=== PATIENT | male | born 1940 | race Caucasian/White ===

== ENCOUNTER 2016-06-20 14:05 | Emergency (ER) | payer OTHER, MEDICARE ==
[2016-06-20 14:13] VITALS: TEMP 97.9
--- NOTE | 2016-06-20 14:21 | EDPHY ---
H & P Stated Complaint: sob cough fatigue worsening respiratory illness x weeks Time Seen by Provider: 06/20/16 14:21 HPI/ROS: CHIEF COMPLAINT: Chronic cough, worsening symptoms HISTORY OF PRESENT ILLNESS: The patient presents to the ED for evaluation of a worsening cough for the past 2-3 weeks. The patient saw his primary care provider who started him on amoxicillin. The patient is taking the antibiotics without improvement of his symptoms. The patient does use oxygen at night for obstructive sleep apnea. The patient has a history of chronic atrial fibrillation but is not anticoagulated secondary to a history of serious GI bleed in the past. The patient denies asymmetric calf pain or swelling. The patient does report that his symptoms are bothersome throughout the day. The patient denies additional acute complaints. REVIEW OF SYSTEMS: A comprehensive 10 point review of systems is otherwise negative aside from elements mentioned in the history of present illness. Source: Patient Exam Limitations: No limitations - Personal History Tetanus Vaccine Date: < 10 YRS - Medical/Surgical History Hx Chronic Respiratory Disease: Yes Other PMH: COPD - Family History Significant Family History: No pertinent family hx - Social History Smoking Status: Former smoker Alcohol Use: None Drug Use: None - Physical Exam Exam: General Appearance: Alert, no distress Eyes: Pupils equal and round no pallor or injection ENT, Mouth: Mucous membranes moist Respiratory: Tachypnea, distant breath sounds, rhonchi bilateral bases Cardiovascular: Tachycardic, irregular Gastrointestinal: Abdomen is soft and nontender, no masses, bowel sounds normal Neurological: A&O, normal motor function, normal sensory exam, normal cranial nerves Skin: Warm and dry, no rashes Musculoskeletal: Neck is supple nontender Extremities: symmetrical, full range of motion Constitutional: Initial Vital Signs Temperature (C) 36.6 C 06/20/16 14:10 Heart Rate 118 H 06/20/16 14:10 Respiratory Rate 20 06/20/16 14:10 Blood Pressure 100/62 06/20/16 14:10 O2 Sat (%) 93 06/20/16 14:10 O2 Delivery Mode Nasal Cannula O2 (L/minute) 3 Allergies/Adverse Reactions: DUST/ ENVIRONMENTAL Allergy (Intermediate, Uncoded 05/26/12 15:33) DIFFICULY BREATHING/ NASAL CONGESTON Home Medications: Medication Instructions Recorded Lisinopril [Zestril 2.5 mg (RX)] 2.5 mg PO DAILY 09/13/11 Simvastatin [Zocor 20 mg (RX)] 20 mg PO HS 09/13/11 Spironolactone [Aldactone 25 MG 25 mg PO DAILY 09/13/11 (RX)] Tiotropium Inhaler [Spiriva 1 inh IH DAILY 09/13/11 Inhaler (RX)] Cyanocobalamin [Vitamin B12 100 100 mcg PO DAILY 09/28/11 MCG (OTC)] Digoxin [Lanoxin 0.25 mg (RX)] 0.25 mg PO DAILY 09/28/11 Multivitamins [Multivitamin (OTC)] 1 each PO DAILY 09/28/11 Albuterol Hfa Anes Only [Proair 2 puffs IH QID PRN 10/02/11 Hfa Icu (RX)] Aspirin [Aspirin 81mg (OTC)] 81 mg PO DAILY 10/02/11 Beclomethasone Qvar 40 [Qvar 40 1 puffs IH BID 10/02/11 (RX)] Carvedilol [Coreg (RX)] 3.125 mg PO BIDMEAL 10/02/11 Ertapenem [INVanz] 1 gm IV DAILY 10/02/11 Fexofenadine HCl [Marlin] 60 mg PO DAILY 10/02/11 Furosemide [Lasix 20 MG (RX)] 20 mg PO DAILY 10/02/11 Herb/Supplements 1 tab PO DAILY 10/02/11 Levalbuterol 1.25 mg [Xopenex 1.25 mg IH DAILY 10/02/11 1.25MG Neb (RX)] Levothyroxine [Synthroid 50 mcg 50 mcg PO DAILY06 10/02/11 (RX)] Amiodarone HCl [Pacerone (*)] 200 mg PO DAILY 10/04/11 [place]-3 Fatty Acids [Fish Oil 1000 1,000 mg PO DAILY 10/04/11 mg (OTC)] Prednisone [Sterapred Ds] 10 mg PO 05/26/12 predniSONE [Prednisone] 10 mg PO DAILY #15 tablet 05/26/12 oxyCODONE/APAP 5/325 [Percocet 1 tab PO Q4-6PRN PRN #14 tab 08/29/14 5/325 (*)] Benzonatate [Tessalon Pearles (RX)] 100 mg PO TID PRN #30 cap 06/20/16 predniSONE [prednisone 20mg (RX)] 3 tab PO DAILY #15 tab 06/20/16 Medical Decision Making - Diagnostics EKG Interpretation: EKG: Complete interpretation has been separately recorded in the [facility] archive. Summary impression: Atrial fibrillation, rate 120, nonspecific T- wave changes noted in the inferior leads. Imaging: Chest x-ray PA lateral: Images reviewed by myself, changes consistent with COPD noted, no obvious consolidation, no heart failure ED Course/Re-evaluation: The patient presents to the emergency department with worsening cough for the past several weeks. The patient has been on a course of antibiotics without improvement. He has been using Xopenex at home. The patient does have home oxygen. The patient is noted have a harsh rhonchorous cough in the ED. His chest x-ray demonstrates no obvious infiltrate by my interpretation there is evidence of underlying COPD. The patient did receive an albuterol nebulizer in the ED. He is noted to be in chronic atrial fibrillation which is rate controlled. Patient did receive IV fluids in the ED and is currently feeling much better. At this point time the patient will be given a short course of prednisone which he has used in the past for cough and dyspnea. The patient was given 60 mg of prednisone in the ED. The patient is also given a refill of Tessalon Perles. Differential Diagnosis: Differential diagnosis considered includes asthma, bronchitis, pneumonia, congestive heart failure, uncontrolled atrial fibrillation - Data Points Laboratory Results: Laboratory Results 06/20/16 14:37 06/20/16 14:37 06/20/16 06/20/16 14:37 14:37 WBC 12.34 10^3/uL H 10^3/uL (3.80-9.50) RBC 5.66 10^6/uL 10^6/uL (4.40-6.38) Hgb 17.2 g/dL g/dL (13.7-17.5) Hct 50.1 % % (40.0-51.0) MCV 88.5 fL fL (81.5-99.8) MCH 30.4 pg pg (27.9-34.1) MCHC 34.3 g/dL g/dL (32.4-36.7) RDW 13.8 % % (11.5-15.2) Plt Count 203 10^3/uL 10^3/uL (150-400) MPV 8.8 fL fL (8.7-11.7) Neut % (Auto) 75.6 % H % (39.3-74.2) Lymph % (Auto) 13.0 % L % (15.0-45.0) Mcdowell % (Auto) 7.7 % % (4.5-13.0) Eos % (Auto) 2.4 % % (0.6-7.6) Baso % (Auto) 0.8 % % (0.3-1.7) Nucleat RBC Rel Count 0.0 % % (0.0-0.2) Absolute Neuts (auto) 9.33 10^3/uL H 10^3/uL (1.70-6.50) Absolute Lymphs (auto) 1.60 10^3/uL 10^3/uL (1.00-3.00) Absolute Monos (auto) 0.95 10^3/uL H 10^3/uL (0.30-0.80) Absolute Eos (auto) 0.30 10^3/uL 10^3/uL (0.03-0.40) Absolute Basos (auto) 0.10 10^3/uL 10^3/uL (0.02-0.10) Absolute Nucleated RBC 0.00 10^3/uL 10^3/uL (0-0.01) Immature Gran % 0.5 % % (0.0-1.1) Immature Gran # 0.06 10^3/uL 10^3/uL (0.00-0.10) Sodium 137 mEq/L mEq/L (134-144) Potassium 4.7 mEq/L mEq/L (3.5-5.2) Chloride 99 mEq/L mEq/L (97-110) Carbon Dioxide 25 mEq/l mEq/l (22-31) Anion Gap 13 mEq/L mEq/L (8-16) BUN 31 mg/dL H mg/dL (7-23) Creatinine 0.7 mg/dL mg/dL (0.7-1.3) Estimated GFR > 60 Glucose 112 mg/dL H mg/dL (70-100) Calcium 9.7 mg/dL mg/dL (8.5-10.4) Troponin I < 0.012 ng/mL ng/mL (0-0.034) NT-Pro-B Natriuret Pep 1020 pg/mL H pg/mL (0-450) Medications Given: Discontinued Medications Albuterol (Proventil Neb) 3 ml IH EDNOW ONE Stop: 06/20/16 14:33 Last Admin: 06/20/16 14:47 Dose: 3 ml Sodium Chloride (Ns) 1,000 mls @ 0 mls/hr IV ONCE ONE PRN Reason: Wide Open Stop: 06/20/16 15:33 Last Admin: 06/20/16 15:35 Dose: 1,000 mls Departure - Departure Disposition: Home, Routine, Self-Care Clinical Impression: Chronic obstructive pulmonary disease with acute exacerbation Condition: Good Instructions: COPD (Chronic Obstructive Pulmonary Disease) (ED) Additional Instructions: 1. Please take prednisone as directed for next 5 days. 2. Please return to the emergency department for worsening respiratory symptoms , chest pain or other concerns. 3. Please follow up with Dr. John Butler in the next week for a recheck. Referrals: Richard Butler MD [Primary Care Provider] - As per Instructions Prescriptions: Benzonatate [Tessalon Pearles (RX)] 100 mg PO TID PRN #30 cap PRN Reason: for cough predniSONE [prednisone 20mg (RX)] 3 tab PO DAILY #15 tab
[2016-06-20] MEDS ORDERED: ALBUTEROL 3 ML DEYVIAL IH ONE (14:32)
[2016-06-20 14:52] LABS: % IMMATURE GRANULYOCYTES 0.5 % (0.0-1.1); ABSOLUTE IMMATURE GRANULOCYTES 0.06 10^3/uL (0.00-0.10); ADD DIFF? NO; ADD MORPH? NO; ADD SCAN? NO; ATYPICAL LYMPHOCYTE FLAG 0 (0-99); FRAGMENT RBC FLAG 0 (0-99); HEMATOCRIT 50.1 % (40.0-51.0); HEMOGLOBIN 17.2 g/dL (13.7-17.5); LEFT SHIFT FLG 0 (0-99); LIPEMIA HEMOLYSIS FLAG 90 (0-99); MEAN CELL HEMOGLOBIN 30.4 pg (27.9-34.1); MEAN CELL HEMOGLOBIN CONCENTR. 34.3 g/dL (32.4-36.7); MEAN CELL VOLUME 88.5 fL (81.5-99.8); MEAN PLATELET VOLUME 8.8 fL (8.7-11.7); PLATELET CLUMPS FLAG 0 (0-99); PLATELET COUNT 203 10^3/uL (150-400); RED BLOOD CELL COUNT 5.66 10^6/uL (4.40-6.38); RED CELL DISTRIBUTION WIDTH 13.8 % (11.5-15.2)
--- NOTE | 2016-06-20 15:19 | CPEKG ---
Heart Rate: 120 RR Interval: 500 QRSD Interval: 88 QT Interval: 324 QTC Interval: 458 QRS [place]: 88 T Wave [place]: -79 EKG Severity - ABNORMAL ECG - EKG Impression: ATRIAL FIBRILLATION, V-RATE 79-155 EKG Impression: BORDERLINE RIGHT AXIS DEVIATION EKG Impression: NONSPECIFIC REPOL ABNORMALITY, DIFFUSE LEADS Electronically Signed By: David Villanueva 20-Jun-2016 15:23:21
[2016-06-20 15:26] LABS: ANION GAP 13 mEq/L (8-16); CALCIUM 9.7 mg/dL (8.5-10.4); CARBON DIOXIDE 25 mEq/l (22-31); CHLORIDE 99 mEq/L (97-110); CREATININE 0.7 mg/dL (0.7-1.3); GLOMERULAR FILTRATION RATE > 60; GLUCOSE 112 mg/dL (70-100); POTASSIUM 4.7 mEq/L (3.5-5.2); SODIUM 137 mEq/L (134-144)
[2016-06-20] MEDS ORDERED: NS 1,000 ML IV ONE (15:32)
[2016-06-20 15:37] LABS: TROPONIN I < 0.012 ng/mL (0-0.034)
[2016-06-20] MEDS ORDERED: predniSONE 20 MG TAB PO ONE (15:56)
[2016-06-20 17:27] VITALS: BP 98/60; PULSE 103; RESP 18; O2SAT 96
== END 2016-06-20 17:26 | disposition home or self-care (01) ==
DX: J44.1 Chronic obstructive pulmonary disease with (acute) exacerbation (principal); Z87.891 Personal history of nicotine dependence; Z79.82 Long term (current) use of aspirin

== ENCOUNTER → 2016-08-30 | Outpatient (CLI) | payer OTHER, MEDICARE | LOC: BHFA 13:45 | PROVIDERS: ATTEND Internal Medicine Cardiovascular Disease | DX: I50.9 Heart failure, unspecified (principal); I25.10 Atherosclerotic heart disease of native coronary artery without angina pectoris; I48.91 Unspecified atrial fibrillation; J44.9 Chronic obstructive pulmonary disease, unspecified ==

== ENCOUNTER → 2017-04-22 | Outpatient (CLI) | payer OTHER, MEDICARE | LOC: BHCLAF 14:00 | PROVIDERS: ATTEND Internal Medicine Cardiovascular Disease | DX: I48.91 Unspecified atrial fibrillation (principal); I42.9 Cardiomyopathy, unspecified | CPT/HCPCS: 93306-PO ==

== ENCOUNTER 2018-01-31 13:33 | Emergency (ER) | payer OTHER, MEDICARE ==
[2018-01-31] MEDS ORDERED: CEPHALEXIN 500 MG CAP PO ONE (14:19)
--- NOTE | 2018-01-31 14:23 | EDPHY ---
H & P Stated Complaint: mechanical fall 1 week ago--R leg injury Time Seen by Provider: 01/31/18 14:09 HPI/ROS: CHIEF COMPLAINT: Right leg injury HISTORY OF PRESENT ILLNESS: Patient is an 78-year-old man who states that 7 days ago he took the lid off of the crawl space and then accidentally stepped into it with his right leg. He caught himself before landing in a sitting position on the edge but did scrape his donahue on the edge of the crawl space. He also bumped his calf against the wall and had bruising of the calf. The bruising has gradually dissipated and has a gravid taped and to his foot. He denies any pain in the foot or ankle. No knee pain. He has been ambulating without difficulty. However the wound on his donahue is not healing well and is become slightly erythematous. No purulent. No drainage. No fluctuance. No fever. He does have a history of atrial fibrillation but does not take blood thinners other than aspirin. Severity: Moderate Modifying factors: None REVIEW OF SYSTEMS: Constitutional: denies: chills, fever, recent illness, recent injury EENTM: denies: blurred vision, double vision, nose congestion Respiratory: denies: cough, shortness of breath Cardiac: denies: chest pain, irregular heart rate, lightheadedness, palpitations Gastrointestinal/Abdominal: denies: abdominal pain, diarrhea, nausea, vomiting, blood streaked stools Genitourinary: denies: dysuria, frequency, hematuria, pain Musculoskeletal: denies: joint pain, muscle pain Skin: See HPI Neurological: denies: headache, numbness, paresthesia, tingling, dizziness, weakness Hematologic/Lymphatic: denies: blood clots, easy bleeding, easy bruising Immunologic/allergic: denies: HIV/AIDS, transplant 10 systems reviewed and negative except as noted EXAM: GENERAL: Well-appearing, well-nourished and in no acute distress. HEAD: Atraumatic, normocephalic. EYES: Pupils equal round and reactive to light, extraocular movements intact, sclera anicteric, conjunctiva are normal. ENT: TMs normal, nares patent, oropharynx clear without exudates. Moist mucous membranes. NECK: Normal range of motion, supple without lymphadenopathy or JVD. LUNGS: Breath sounds clear to auscultation bilaterally and equal. No wheezes rales or rhonchi. HEART: Regular rate and rhythm without murmurs, rubs or gallops. ABDOMEN: Soft, nontender, normoactive bowel sounds. No guarding, no rebound. No masses appreciated. BACK: No CVA tenderness, no spinal tenderness, step-offs or deformities EXTREMITIES: Normal range of motion, no pitting or edema. No clubbing or cyanosis. The mild bruising to right foot. Patient is not concerned about this. No pain or swelling. NEUROLOGICAL: Cranial nerves II through XII grossly intact. Normal speech, normal gait. 5/5 strength, normal movement in all extremities, normal sensation , normal reflexes PSYCH: Normal mood, normal affect. SKIN: 5 cm abrasion to right anterior donahue, less than a cm deep. Mild erythema at wound margins. Slightly warm. No purulence. No fluctuance. Source: Patient Exam Limitations: No limitations - Personal History Tetanus Vaccine Date: < 10 YRS - Medical/Surgical History Hx Asthma: No Hx Chronic Respiratory Disease: Yes Hx Diabetes: No Hx Cardiac Disease: Yes Hx Renal Disease: No Hx Cirrhosis: No Hx Alcoholism: No Hx HIV/AIDS: No Hx Splenectomy or Spleen Trauma: No Other PMH: COPD, A fib, htn - Family History Significant Family History: No pertinent family hx - Social History Smoking Status: Former smoker Alcohol Use: Sober Drug Use: None Constitutional: Initial Vital Signs Temperature (C) 36.7 C 01/31/18 13:41 Heart Rate 104 H 01/31/18 13:41 Respiratory Rate 18 01/31/18 13:41 Blood Pressure 131/86 H 01/31/18 13:41 O2 Sat (%) 92 01/31/18 13:41 O2 Delivery Mode Room Air Allergies/Adverse Reactions: DUST/ ENVIRONMENTAL Allergy (Intermediate, Uncoded 05/26/12 15:33) DIFFICULY BREATHING/ NASAL CONGESTON Home Medications: Medication Instructions Recorded Lisinopril [Zestril 2.5 mg (RX)] 2.5 mg PO DAILY 09/13/11 Simvastatin [Zocor 20 mg (RX)] 20 mg PO HS 09/13/11 Spironolactone [Aldactone 25 MG 25 mg PO DAILY 09/13/11 (RX)] Tiotropium Inhaler [Spiriva 1 inh IH DAILY 09/13/11 Inhaler (RX)] Cyanocobalamin [Vitamin B12 100 100 mcg PO DAILY 09/28/11 MCG (OTC)] Digoxin [Lanoxin 0.25 mg (RX)] 0.25 mg PO DAILY 09/28/11 Multivitamins [Multivitamin (OTC)] 1 each PO DAILY 09/28/11 Albuterol Hfa Anes Only [Proair 2 puffs IH QID PRN 10/02/11 Hfa Icu (RX)] Aspirin [Aspirin 81mg (OTC)] 81 mg PO DAILY 10/02/11 Beclomethasone Qvar 40 [Qvar 40 1 puffs IH BID 10/02/11 (RX)] Carvedilol [Coreg (RX)] 3.125 mg PO BIDMEAL 10/02/11 Ertapenem [INVanz] 1 gm IV DAILY 10/02/11 Fexofenadine HCl [Marlin] 60 mg PO DAILY 10/02/11 Furosemide [Lasix 20 MG (RX)] 20 mg PO DAILY 10/02/11 Herb/Supplements 1 tab PO DAILY 10/02/11 Levalbuterol 1.25 mg [Xopenex 1.25 mg IH DAILY 10/02/11 1.25MG Neb (RX)] Levothyroxine [Synthroid 50 mcg 50 mcg PO DAILY06 10/02/11 (RX)] Amiodarone HCl [Pacerone (*)] 200 mg PO DAILY 10/04/11 [place]-3 Fatty Acids [Fish Oil 1000 1,000 mg PO DAILY 10/04/11 mg (OTC)] Prednisone [Sterapred Ds] 10 mg PO 05/26/12 predniSONE [Prednisone] 10 mg PO DAILY #15 tablet 05/26/12 oxyCODONE/APAP 5/325 [Percocet 1 tab PO Q4-6PRN PRN #14 tab 08/29/14 5/325 (*)] Benzonatate [Tessalon Pearles (RX)] 100 mg PO TID PRN #30 cap 06/20/16 predniSONE [prednisone 20mg (RX)] 3 tab PO DAILY #15 tab 06/20/16 Cephalexin [Keflex] 500 mg PO TID #21 cap 01/31/18 Medical Decision Making ED Course/Re-evaluation: I do not think imaging is warranted and the patient agrees. He is not concerned about fracture. He has a abrasion that appears to be getting infected. I will start him on Keflex. I do not suspect staph infection at this point. I warned him to return to the ER if he develops a fever or worsening signs of infection. Differential Diagnosis: Partial list of the Differential diagnosis considered include but were not limited to; wound infection, abrasion, contusion, muscle tear and although unlikely based on the history and physical exam, I also considered vascular injury, fracture, ligamentous injury. I discussed these differential diagnoses and the plan with the patient as well as the usual and expected course. The patient understands that the diagnosis is provisional and that in medicine we are not always correct and that further workup is often warranted. Usual and customary warnings were given. All of the patient's questions were answered. The patient was instructed to return to the emergency department should the symptoms at all worsen or return, otherwise to followup with the physician as we discussed. - Data Points Medications Given: Discontinued Medications Cephalexin HCl (Keflex) 500 mg PO EDNOW ONE PRN Reason: Protocol Stop: 01/31/18 14:20 Last Admin: 01/31/18 14:25 Dose: 500 mg Departure - Departure Disposition: Home, Routine, Self-Care Clinical Impression: Wound infection Contusion Qualifiers: Encounter type: initial encounter Contusion area: lower leg Laterality: right Qualified Code(s): S80.11XA - Contusion of right lower leg, initial encounter Condition: Fair Instructions: Cephalexin (By mouth), Wound Infection (ED) Referrals: Richard Butler MD [Primary Care Provider] - As per Instructions Prescriptions: Cephalexin [Keflex] 500 mg PO TID #21 cap
[2018-01-31 14:32] VITALS: BP 107/73
== END 2018-01-31 14:41 | disposition home or self-care (01) ==
DX: S80.11XA Contusion of right lower leg, initial encounter (principal); I10 Essential (primary) hypertension; J44.9 Chronic obstructive pulmonary disease, unspecified; Z87.891 Personal history of nicotine dependence; W22.09XA Striking against other stationary object, initial encounter; Y93.89 Activity, other specified; Y92.9 Unspecified place or not applicable; Y99.9 Unspecified external cause status

== ENCOUNTER → 2018-08-26 | Outpatient (CLI) | payer OTHER, MEDICARE | LOC: BHCLAF 13:15 | PROVIDERS: ATTEND Internal Medicine Interventional Cardiology | DX: I48.91 Unspecified atrial fibrillation (principal) | CPT/HCPCS: 93306-PO ==